=== PATIENT | male | born 1950 | race Caucasian/White ===

== ENCOUNTER 2025-08-23 07:28 | Day surgery (SDC) | payer MEDICARE ==
[2025-08-23] MEDS: Lactated Ringers 1,000 ML IV SCH (07:52)
[2025-08-23] MEDS ORDERED: fentaNYL 50 MCG/ML SDV ONE (08:09)
[2025-08-23] MEDS ORDERED: Propofol 200 MG/20 ML SDV ONE (08:09)
== END 2025-08-23 11:05 | disposition home or self-care (01) ==
LOC: JP.SDS 07:28
PROVIDERS: ATTEND Family Medicine
DX: Z12.11 Encounter for screening for malignant neoplasm of colon (principal); D12.4 Benign neoplasm of descending colon; Z83.719 Family history of colon polyps, unspecified
CPT/HCPCS: 00811; 45380; J2704; J3010; J7120; 88305